=== PATIENT | male | born 1985 | race Caucasian/White ===

== ENCOUNTER 2025-01-16 00:07 | Emergency (ER) | payer MEDICARE, OTHER ==
--- NOTE | 2025-01-16 00:58 | ED ---
General Adult HPI - General Chief complaint: Skin/Abscess/Foreign Body Stated complaint: Allergic reaction Time Seen by Provider: 01/16/25 00:17 Source: patient, RN notes reviewed Mode of arrival: ambulatory Limitations: no limitations - History of Present Illness Initial comments: 39-year-old male presents to the emergency department for evaluation of rash in his groin. Patient has been following with his primary care provider for this but notes that it seems like it has spread today. He does note that this started higher in the gluteal cleft and he saw his primary care provider for this. He was prescribed a topical at that time. He notes that he went back to his primary care provider and was then prescribed an antibiotic and antifungal. He notes that he applied hydrocortisone to the area and feels like this may have worsened the issue. He has not utilized this in the past 24 hours. He denies any recent fever, chills. Denies any immunocompromise. - Related Data Previous Rx's Medication Instructions Recorded Nelsonia Carbonate ER [Lithobid] 450 mg PO BID #60 tablet.er 11/10/15 OLANZapine [ZyPREXA] 10 mg PO DAILY #30 tab 11/10/15 OLANZapine [ZyPREXA] 20 mg PO HS #60 tab 11/10/15 haloperidoL [Haldol] 5 mg PO BID #60 tab 11/10/15 lamoTRIgine [LaMICtal] 100 mg PO DAILY #30 tab 11/10/15 traZODone HCL [Desyrel] 150 mg PO HS #90 tab 11/10/15 Allergies Allergy/AdvReac Type Severity Reaction Status Date / Time lurasidone HCl [From Latuda] Allergy Unknown Verified 01/16/25 00:13 Penicillins Allergy Unknown Verified 01/16/25 00:13 Review of Systems ROS Statement: Those systems with pertinent positive or pertinent negative responses have been documented in the HPI. ROS Other: All systems not noted in ROS Statement are negative. Past Medical History Additional Past Medical History / Comment(s): migraines, psoriasis History of Any Multi-Drug Resistant Organisms: None Reported Past Surgical History: Ear Surgery Additional Past Surgical History / Comment(s): Bilaterl ear tubes x2 Past Anesthesia/Blood Transfusion Reactions: No Reported Reaction Past Psychological History: Anxiety, Depression Smoking Status: Current every day smoker Past Alcohol Use History: None Reported Past Drug Use History: Marijuana General Exam Limitations: no limitations General appearance: alert, in no apparent distress Head exam: Present: atraumatic, normocephalic, normal inspection Eye exam: Present: normal appearance, PERRL, EOMI. Absent: scleral icterus, conjunctival injection, periorbital swelling ENT exam: Present: normal exam, mucous membranes moist Respiratory exam: Present: normal lung sounds bilaterally. Absent: respiratory distress, wheezes, rales, rhonchi, stridor Cardiovascular Exam: Present: regular rate, normal rhythm, normal heart sounds. Absent: systolic murmur, diastolic murmur, rubs, gallop, clicks Extremities exam: Present: normal inspection, full ROM, normal capillary refill. Absent: tenderness, pedal edema, joint swelling, calf tenderness Back exam: Present: normal inspection Neurological exam: Present: alert, oriented X3 Psychiatric exam: Present: normal affect, normal mood Skin exam: Present: warm, dry, intact, erythema (Erythematous macular rash in the bilateral inguinal area). Absent: normal color Course Vital Signs 01/16/25 01/16/25 00:13 01:17 Temperature 99.1 F 98.7 F Pulse Rate 94 74 Respiratory 18 16 Rate Blood Pressure 140/88 122/78 O2 Sat by Pulse 95 96 Oximetry Medical Decision Making - Medical Decision Making Was pt. sent in by a medical professional or institution (, PA, FILM AND VIDEO GRAPHICS DESIGNER, urgent care, hospital, or retirement...) When possible be specific @ -No Did you speak to anyone other than the patient for history (EMS, parent, family, police, friend...)? What history was obtained from this source @ -No Did you review nursing and triage notes (agree or disagree)? Why? @ -I reviewed and agree with nursing and triage notes Were old charts reviewed (outside hosp., previous admission, EMS record, old EKG, old radiological studies, urgent care reports/EKG's, retirement records)? Report findings @ -No old charts were reviewed Differential Diagnosis (chest pain, altered mental status, abdominal pain women, abdominal pain men, vaginal bleeding, weakness, fever, dyspnea, syncope, headache, dizziness, GI bleed, back pain, seizure, CVA, palpatations, mental health, musculoskeletal)? @ -Cellulitis, abscess, tinea cruris, this list is not all inclusive EKG interpreted by me (3pts min.). @ -None X-rays interpreted by me (1pt min.). @ -None done CT interpreted by me (1pt min.). @ -None done U/S interpreted by me (1pt. min.). @ -None done What testing was considered but not performed or refused? (CT, X-rays, U/S, labs)? Why? @ -None What meds were considered but not given or refused? Why? @ -None Did you discuss the management of the patient with other professionals (professionals i.e. , PA, FILM AND VIDEO GRAPHICS DESIGNER, lab, RT, psych nurse, social worker aide, load tester, teacher, housing management officer, counseling case manager)? Give summary @ -No Was smoking cessation discussed for >3mins.? @ -No Was critical care preformed (if so, how long)? @ -No Were there social determinants of health that impacted care today? How? (Homelessness, low income, unemployed, alcoholism, drug addiction, transportation, low edu. Level, literacy, decrease access to med. care, long-term, rehab)? @ -No Was there de-escalation of care discussed even if they declined (Discuss DNR or withdrawal of care, Hospice)? DNR status @ -No What co-morbidities impacted this encounter? (DM, HTN, Smoking, COPD, CAD, Cancer, CVA, ARF, Chemo, Hep., AIDS, mental health diagnosis, sleep apnea, morbid obesity)? @ -None Was patient admitted / discharged? Hospital course, mention meds given and route, prescriptions, significant lab abnormalities, going to OR and other pertinent info. @ -Discharge. Patient presented to the emergency department for evaluation of groin rash. He is currently on antibiotics and antifungals for this. On my examination it appears that the patient has fungal infection. I advised him to keep the area dry and apply the powder. Advised him to continue the oral medications that he was prescribed by his primary care provider. Patient discharged home. He is understanding agreeable discharge plan. Patient stable at time of discharge. Case discussed with Dr. Kennedy. Undiagnosed new problem with uncertain prognosis? @ -No Drug Therapy requiring intensive monitoring for toxicity (Heparin, Nitro, Insulin, Cardizem)? @ -No Were any procedures done? @ -No Diagnosis/symptom? @ -[Tinea cruris Acute, or Chronic, or Acute on Chronic? @ -Acute Uncomplicated (without systemic symptoms) or Complicated (systemic symptoms)? @ -Uncomplicated Side effects of treatment? @ -No Exacerbation, Progression, or Severe Exacerbation? @ -No Poses a threat to life or bodily function? How? (Chest pain, [place], [place], pneumonia, PE, COPD, DKA, ARF, appy, cholecystitis, CVA, Diverticulitis, Homicidal, Suicidal, threat to staff... and all critical care pts) @ -No Disposition Clinical Impression: Tinea cruris Disposition: HOME SELF-CARE Condition: Stable Instructions (If sedation given, give patient instructions): Nystatin (On the skin) Additional Instructions: Please utilize the nystatin powder three times daily. Follow up with your doctor. Please return to the emergency department for new or worsening symptoms. Is patient prescribed a controlled substance at d/c from ED?: No Referrals: Fe Lau MD [Primary Care Provider] - 1-2 days
[2025-01-16] MEDS: NYSTATIN 100,000 UNIT/GM POWD 15 GM TOPICAL STA (01:08)
[2025-01-16] MEDS: KETOROLAC 15 MG/ML 1 ML VIAL IM STA (01:12)
[2025-01-16 01:19] VITALS: BP 122/78; PULSE 74; RESP 16; TEMP 98.7
== END 2025-01-16 01:19 | disposition home or self-care (01) ==
LOC: EC 00:07
DX: B35.6 Tinea cruris (principal); F17.200 Nicotine dependence, unspecified, uncomplicated; Z88.0 Allergy status to penicillin; Z88.8 Allergy status to other drugs, medicaments and biological substances
CPT/HCPCS: 87070; 87205; 87075; 87077; 87186; 99283; 96372; J1885